=== PATIENT | female | born 1955 | race Caucasian/White ===

== ENCOUNTER 2020-11-03 17:20 | Emergency (ER) | payer OTHER ==
[~2020-11-03 17:20] MED LIST: LEXAPRO 10MG TA10 MG PO; NORCO 5-325 TA1 EACH PO; PERCOCET 5-3251 EACH PO
== END 2020-11-03 20:30 | disposition home or self-care (01) ==
LOC: FER 17:20
DX: S50.11XA Contusion of right forearm, initial encounter (principal); W17.81XA Fall down embankment (hill), initial encounter; Y92.008 Other place in unspecified non-institutional (private) residence as the place of occurrence of the external cause
CPT/HCPCS: 73090; 93971